=== PATIENT | female | born 1995 | race Hispanic/Latino ===

== ENCOUNTER 2024-06-26 10:36 | Emergency (ER) | payer MEDICARE ==
[~2024-06-26] VITALS: Ht 165.1 cm; Wt 90.7 kg
[2024-06-26 10:40] VITALS: TEMP 97.5
[2024-06-26] MEDS: LORAZEPAM INJ 2 MG/ML VIAL IM ONE (11:15)
[2024-06-26] MEDS: ASPIRIN 81 MG CHEW TAB PO ONE (11:35)
[2024-06-26 11:37] LABS: BASOPHILS # (AUTO) 0.1 (0.0-0.1); BASOPHILS % 0.4 % (0.0-1.0); EOSINOPHILS % 0.3 % (0.0-6.0); HEMATOCRIT 44.8 % (34.2-44.1); HEMOGLOBIN 14.7 g/dL (12.0-16.0); LYMPHOCYTES # (AUTO) 3.7 (1.0-3.2); LYMPHOCYTES % 31.6 % (18.0-39.1); MEAN CORPUSCULAR HEMOGLOBIN 30.8 pg (28-32); MEAN CORPUSCULAR HGB CONC 32.8 g/dL (31-35); MEAN CORPUSCULAR VOLUME 93.7 fL (81-99); MONOCYTES # (AUTO) 0.9 (0.2-0.8); MONOCYTES % 7.6 % (4.4-11.3); NEUTROPHILS # (AUTO) 6.9 (2.1-6.9); NEUTROPHILS % 59.4 % (38.7-80.0); PLATELET COUNT 240 x10e3/uL (140-360); RED BLOOD COUNT 4.78 x10e6/uL (3.6-5.1); RED CELL DISTRIBUTION WIDTH 11.9 % (11.7-14.4); WHITE BLOOD COUNT 11.62 x10e3/uL (4.8-10.8)
[2024-06-26 11:59] LABS: ALANINE AMINOTRANSFERASE 21 IU/L (0-55); ALBUMIN 4.4 g/dL (3.5-5.0); ALKALINE PHOSPHATASE 70 IU/L (40-150); ANION GAP 22.5 mmol/L (8-16); BILIRUBIN,TOTAL 0.4 mg/dL (0.2-1.2); BLOOD UREA NITROGEN 10 mg/dL (7-26); BUN/CREATININE RATIO 11 (6-25); CALCIUM 9.5 mg/dL (8.4-10.2); CARBON DIOXIDE 15 mmol/L (22-29); CHLORIDE 103 mmol/L (98-107); CREATINE KINASE 103 IU/L (29-168); CREATININE, SERUM 0.95 mg/dL (0.57-1.11); EST GLOMERULAR FILTRATION RATE 84 ML/MIN (>=60); GLUCOSE 135 mg/dL (74-118); POTASSIUM 3.5 mmol/L (3.5-5.1); SODIUM 137 mmol/L (136-145)
[2024-06-26 12:06] LABS: TROPONIN I < 0.001 ng/mL (0-0.300)
[2024-06-26 12:20] VITALS: PULSE 96; RESP 20; O2SAT 100
[2024-06-26] MEDS: DEXAMETHASONE SOD PHOS 10 MG/1 ML VIAL IV ONE (12:25)
[2024-06-26] MEDS: LEVETIRACETAM 1500 MG/100 ML 100 ML IV ONE (12:26)
== END 2024-06-26 13:31 | disposition other institution (70) ==
LOC: ER 11:08
DX: R56.9 Unspecified convulsions (principal); R22.0 Localized swelling, mass and lump, head; G93.89 Other specified disorders of brain
CPT/HCPCS: 36415; 70450; 71045; 80053; 82550; 84484; 85025; 93005; 99285; J1100